=== PATIENT | female | born 1995 | race Caucasian/White ===

== ENCOUNTER 2018-01-19 21:37 | Emergency (ER) | payer MEDICAID ==
[2018-01-19] MEDS ORDERED: Albuterol 6.7 GM Inhaler INH ONE ×2 (21:38→22:18)
[2018-01-19] MEDS ORDERED: Albuterol/Ipratropium 3.0-0.5 MG/3 ML Neb Soln NEB ONE (22:13)
[2018-01-19] MEDS ORDERED: predniSONE 20 MG Tab PO ONE (22:13)
--- NOTE | 2018-01-19 22:19 | EDM.PDOC ---
ED HPI GENERAL MEDICAL PROBLEM - General Chief Complaint: Respiratory Problem Stated Complaint: CANT BREATHE [id number] Time Seen by Provider: 01/19/18 22:14 Source of Information: Reports: Patient History Limitations: Reports: No Limitations - History of Present Illness INITIAL COMMENTS - FREE TEXT/NARRATIVE: c/o allergic reaction to hay, got worse today with SOB but out of inhaler and not getting better. - Related Data Allergies Allergy/AdvReac Type Severity Reaction Status Date / Time Cephalosporins Allergy Cannot Verified 01/19/18 21:56 Remember morphine Allergy Hives Verified 01/19/18 21:56 Home Meds: Home Meds . [No Known Home Meds] 01/19/18 [History] Past Medical History Respiratory History: Reports: Asthma - Past Surgical History GI Surgical History: Reports: Colostomy Other GI Surgeries/Procedures: Laparoscopy Social & Family History - Tobacco Use Smoking Status *Q: Current Every Day Smoker Years of Tobacco use: 5 Packs/Tins Daily: 10 - Caffeine Use Caffeine Use: Reports: Coffee - Recreational Drug Use Recreational Drug Use: No ED ROS GENERAL - Review of Systems Review Of Systems: ROS reveals no pertinent complaints other than HPI. ED EXAM, GENERAL - Physical Exam Exam: See Below Exam Limited By: No Limitations General Appearance: Alert, WD/WN, Mild Distress, Other (cough spasms) Ears: Hearing Grossly Normal Throat/Mouth: Normal Voice, No Airway Compromise Head: Atraumatic Neck: Non-Tender, Full Range of Motion Respiratory/Chest: Decreased Breath Sounds, Rhonchi, Wheezing. No: Retractions , Splinting Cardiovascular: Regular Rate, Rhythm GI/Abdominal: Soft, Non-Tender Neurological: Alert, Oriented, Normal Cognition, Normal Gait, No Motor/Sensory Deficits Psychiatric: Normal Affect, Normal Mood Skin Exam: Warm, Dry, Normal Color Lymphatic: No Adenopathy Course - Vital Signs Last Recorded V/S: Last Vital Signs Temp 37.2 C 01/19/18 21:43 Pulse 110 H 01/19/18 21:43 Resp 15 01/19/18 21:43 BP 118/68 01/19/18 21:43 Pulse Ox 98 01/19/18 21:43 - Orders/Labs/Meds Orders: Active Orders 24 hr Category Date Time Status RT Aerosol Therapy [RC] ASDIRECTED Care 01/19/18 22:13 Active Meds: Medications Discontinued Medications Generic Name Dose Route Start Last Admin Trade Name Mady PRN Reason Stop Dose Admin Albuterol Confirm 01/19/18 22:18 Proventil Hfa Administered 01/19/18 22:19 Dose 6.7 gm INH .STK-MED ONE Albuterol/Ipratropium 3 ml 01/19/18 22:13 01/19/18 22:18 Duoneb 3.0-0.5 Mg/3 Ml NEB 01/19/18 22:14 3 ml ONETIME ONE Administration Prednisone 20 mg 01/19/18 22:13 01/19/18 22:18 Prednisone PO 01/19/18 22:14 20 mg ONETIME ONE Administration Departure - Departure Time of Disposition: 22:50 Disposition: Home, Self-Care 01 Condition: Fair Clinical Impression: Bronchospasm, acute - Discharge Information Instructions: Bronchospasm, Adult, [id number] Forms: ED Department Discharge Additional Instructions: 1) avoid [place] areas 2) rest 3) recheck if there is any change or concern rx given; medrol dospak rx togo; albuterol inhaler prn - My Orders Last 24 Hours: My Active Orders 01/19/18 22:13 RT Aerosol Therapy [RC] ASDIRECTED - Assessment/Plan Last 24 Hours: My Active Orders 01/19/18 22:13 RT Aerosol Therapy [RC] ASDIRECTED
== END 2018-01-19 22:53 | disposition home or self-care (01) ==
LOC: DL.ED 21:37
DX: J98.01 Acute bronchospasm (principal); F17.210 Nicotine dependence, cigarettes, uncomplicated; Z88.5 Allergy status to narcotic agent; Z88.1 Allergy status to other antibiotic agents
CPT/HCPCS: 99284; A9270; J7620-GY